=== PATIENT | male | born 1985 | race Two or more races ===

== ENCOUNTER 2016-05-15 20:24 | Emergency (ER) | payer SELFPAY ==
[~2016-05-15] VITALS: Ht 188 cm; Wt 99.8 kg
[2016-05-15 20:42] LABS: BASOPHILS # (AUTO) 0.4 /CMM (0.0-0.2); BASOPHILS % (AUTO) 4.3 % (0.0-2.0); DIFF TOTAL % 100 %; EOSINOPHILS % (AUTO) 0.2 % (0.0-6.0); HEMATOCRIT 39 % (39-51); HEMOGLOBIN 12.5 g/dL (13.5-17.5); LYMPHOCYTES # (AUTO) 2.1 /CMM (0.8-4.8); LYMPHOCYTES % (AUTO) 23.8 % (20.0-44.0); MEAN CORPUSCULAR HEMOGLOBIN 26 PG (26.0-33.0); MEAN CORPUSCULAR HGB CONC 32 g/dl (31.0-36.0); MEAN CORPUSCULAR VOLUME 81 fL (80-96); MONOCYTES # (AUTO) 0.6 /CMM (0.1-1.30); MONOCYTES % (AUTO) 6.7 % (2.0-12.0); NEUTROPHILS # (AUTO) 5.6 /CMM (1.8-8.9); PLATELET COUNT (AUTO) 243 /CMM (150-450); RED BLOOD CELL COUNT(AUTO) 4.83 MIL/uL (4.5-6.0); WHITE BLOOD COUNT (AUTO) 8.7 K/uL (4.3-11.0)
[2016-05-15] MEDS ORDERED: HALOPERIDOL LACTATE INJ 5 MG/ML VIAL ONE (20:56)
[2016-05-15] MEDS ORDERED: diphenhydrAMINE HCL 50 MG/ML VIAL ONE (20:56)
[2016-05-15] MEDS ORDERED: LORAZEPAM INJ 2 MG/ML VIAL ONE (20:57)
[2016-05-15 21:07] LABS: KETONES,URINE Negative (NEGATIVE); LEUKOCYTE ESTERASE ,URINE Negative (NEGATIVE); PH,URINE 6.5 (5.0-8.0)
[2016-05-15] MEDS: LORAZEPAM INJ 2 MG/ML VIAL IM ONE (21:08)
[2016-05-15 21:09] LABS: ADD UA MICROSCOPIC NO
[2016-05-15 21:09] LABS: ALANINE AMINOTRANSFERASE 15 U/L (12-78); ANION GAP 14 (5-14); ASPARTATE AMINOTRANSFERASE 14 U/L (15-37); BILIRUBIN,TOTAL 0.1 mg/dL (0.2-1.0); CARBON DIOXIDE 28 mmol/L (21-32); CHLORIDE 108 mmol/L (98-107); CREATININE 0.7 mg/dL (0.6-1.3); GFR 131 mL/min (>60); GLUCOSE 125 mg/dL (74-106); POTASSIUM 3.4 mmol/L (3.5-5.1); SODIUM SERUM 147 mmol/L (136-145); TOTAL PROTEIN, SERUM 7.8 g/dL (6.4-8.2); UREA NITROGEN, BLOOD 8 mg/dL (7-18)
[2016-05-15] MEDS: diphenhydrAMINE HCL 50 MG/ML VIAL IM ONE (21:09)
[2016-05-15] MEDS: HALOPERIDOL LACTATE INJ 5 MG/ML VIAL IM ONE (21:11)
[2016-05-15 21:14] LABS: ACETAMINOPHEN 0 ug/ml (10-30); INDIRECT BILIRUBIN 0.1 mg/dL (0.0-1.1); SALICYLATE < 0.2 mg/dL (2.8-20.0)
[2016-05-15 21:17] LABS: PHENCYCLIDINE SCREEN,URINE NEGATIVE (NEGATIVE)
[2016-05-15 21:24] LABS: CANNABINOID, URINE POSITIVE (NEGATIVE)
[2016-05-16 08:50] VITALS: BP 126/81
== END 2016-05-16 08:51 | disposition home or self-care (01) ==
LOC: ER 20:26
DX: F10.129 Alcohol abuse with intoxication, unspecified (principal); R45.851 Suicidal ideations
CPT/HCPCS: 36415; 80048-TC; 80076-TC; 80305; 81000-TC; 82962-TC; 85025-TC; A4606; G0480; G6039-TC; J1200; J1630; J2060; Z7610

== ENCOUNTER 2016-05-16 11:48 | Emergency (ER) | payer SELFPAY ==
[~2016-05-16] VITALS: Ht 193 cm; Wt 99.8 kg
[2016-05-16 12:33] LABS: BASOPHILS % (AUTO) 0.5 % (0.0-2.0); DIFF TOTAL % 100 %; EOSINOPHILS % (AUTO) 0.2 % (0.0-6.0); HEMATOCRIT 41 % (39-51); LYMPHOCYTES # (AUTO) 2.1 /CMM (0.8-4.8); LYMPHOCYTES % (AUTO) 22.5 % (20.0-44.0); MEAN CORPUSCULAR HEMOGLOBIN 26 PG (26.0-33.0); MEAN CORPUSCULAR HGB CONC 32 g/dl (31.0-36.0); MEAN CORPUSCULAR VOLUME 81 fL (80-96); MONOCYTES # (AUTO) 0.7 /CMM (0.1-1.30); MONOCYTES % (AUTO) 7.9 % (2.0-12.0); NEUTROPHILS # (AUTO) 6.4 /CMM (1.8-8.9); NEUTROPHILS % (AUTO) 68.9 % (43.0-81.0); PLATELET COUNT (AUTO) 242 /CMM (150-450); RED BLOOD CELL COUNT(AUTO) 5.07 MIL/uL (4.5-6.0); WHITE BLOOD COUNT (AUTO) 9.2 K/uL (4.3-11.0)
[2016-05-16 12:44] LABS: KETONES,URINE Negative (NEGATIVE); LEUKOCYTE ESTERASE ,URINE Negative (NEGATIVE)
[2016-05-16 12:46] LABS: ALBUMIN 4.1 g/dL (3.4-5.0); BILIRUBIN,TOTAL 0.2 mg/dL (0.2-1.0); CALCIUM, SERUM 9.4 mg/dL (8.5-10.1); CREATININE 0.6 mg/dL (0.6-1.3); POTASSIUM 3.4 mmol/L (3.5-5.1); TOTAL PROTEIN, SERUM 7.9 g/dL (6.4-8.2)
[2016-05-16 12:48] LABS: INDIRECT BILIRUBIN 0.2 mg/dL (0.0-1.1); SALICYLATE 1.8 mg/dL (2.8-20.0)
[2016-05-16 12:49] LABS: ADD UA MICROSCOPIC YES
[2016-05-16 12:59] LABS: CANNABINOID, URINE NEGATIVE (NEGATIVE); PHENCYCLIDINE SCREEN,URINE NEGATIVE (NEGATIVE)
[2016-05-16 14:18] LABS: RBC,URINE NONE SEEN /HPF (0-2)
[2016-05-16 14:19] LABS: ADD URINE CULTURE NO; WBC,URINE 0-2 /HPF (0-3)
[2016-05-16 15:19] VITALS: BP 132/88
== END 2016-05-16 15:21 | disposition home or self-care (01) ==
LOC: ER 13:46
DX: R45.851 Suicidal ideations (principal); F10.129 Alcohol abuse with intoxication, unspecified; F17.200 Nicotine dependence, unspecified, uncomplicated
CPT/HCPCS: 36415; 80048; 80076; 80305; 80329; 81001; 85025; 99284; A4606; G0480 ×2; Z7610; 81000-TC; G6039-TC

== ENCOUNTER 2016-05-16 17:56 | Emergency (ER) | payer SELFPAY ==
[~2016-05-16] VITALS: Ht 193 cm; Wt 108.9 kg
[2016-05-16 18:00] VITALS: BP 145/79
[2016-05-16] MEDS ORDERED: IV SET PRIMARY 1 EA INFUS.SET MC ONE (22:20)
[2016-05-16] MEDS ORDERED: IV NS 0.9% 500 ML IV ONE (22:20)
== END 2016-05-16 18:38 ==
LOC: ER 17:59
DX: R45.851 Suicidal ideations (principal); F17.200 Nicotine dependence, unspecified, uncomplicated
CPT/HCPCS: 99283; A4606; J7040; Z7610

== ENCOUNTER 2016-05-16 20:11 | Emergency (ER) | payer SELFPAY ==
[~2016-05-16] VITALS: Ht 177.8 cm; Wt 99.8 kg
[2016-05-16] MEDS ORDERED: IV NS 0.9% 500 ML BAG IV ONE (21:00)
[2016-05-17 05:52] VITALS: BP 134/78
== END 2016-05-17 05:53 | disposition home or self-care (01) ==
LOC: ER 20:13
DX: F10.129 Alcohol abuse with intoxication, unspecified (principal); F17.200 Nicotine dependence, unspecified, uncomplicated; R79.89 Other specified abnormal findings of blood chemistry; R41.82 Altered mental status, unspecified
CPT/HCPCS: 36415; 70450; 82962; 96360; 96361; 99285; A4606; G0480; Z7610